=== PATIENT | male | born 1995 | race African-American/Black ===

== ENCOUNTER 2018-05-30 10:16 | Inpatient (IN) | payer MEDICAID, OTHER ==
[~2018-05-30] VITALS: Ht 188 cm; Wt 125.6 kg
[2018-05-30] MEDS ORDERED: CYCL10 PO (10:38)
[2018-05-30 10:52] LABS: BASOPHILS % (AUTO) 0.9 % (0.0-2.0); EOSINOPHILS % (AUTO) 3.4 % (1.0-6.0); HEMATOCRIT 43.6 % (41-53); LYMPHOCYTES # (AUTO) 1.3 K/uL (1.0-4.8); LYMPHOCYTES % (AUTO) 29.6 % (22.0-44.0); MEAN CORPUSCULAR HGB CONC 34.4 G/dL (31.0-37.0); MEAN CORPUSCULAR VOLUME 84 fL (80-100); MONOCYTES # (AUTO) 0.4 K/uL (0.1-1.0); MONOCYTES % (AUTO) 8.9 % (2.0-9.0); NEUTROPHILS # (AUTO) 2.6 K/uL (1.8-7.7); NEUTROPHILS % (AUTO) 57.2 % (40.0-70.0); PLATELET COUNT (AUTO) 248 K/uL (150-450); RED BLOOD CELL COUNT(AUTO) 5.17 MIL/uL (4.50-5.90); RED CELL DISTRIBUTION WIDTH 13.5 % (11.5-14.5)
[2018-05-30 10:59] LABS: ANION GAP 6 mmol/L (8-16); CALCIUM, TOTAL 9.4 mg/dL (8.8-10.5); CARBON DIOXIDE 31 mmol/L (22-29); CHLORIDE 102 mmol/L (98-107); CREATININE 0.94 mg/dL (0.60-1.30); GLOMERULAR FILTR. RATE CALC > 60 mL/min (>60); GLUCOSE,RANDOM 100 mg/dL (70-110); SODIUM SERUM 139 mmol/L (136-145); UREA NITROGEN, BLOOD 10 mg/dL (7-18)
[2018-05-30 11:00] LABS: AMPHET/METH SCREEN,URINE NEGATIVE (NEGATIVE); APPEARANCE,URINE CLEAR (CLEAR); BARBITURATE SCREEN, URINE NEGATIVE (NEGATIVE); BENZODIAZEPINES SCREEN,URINE NEGATIVE (NEGATIVE); BILIRUBIN,URINE NEGATIVE (NEGATIVE); CANNABINOID SCREEN,URINE NEGATIVE (NEGATIVE); COCAINE SCREEN,URINE NEGATIVE (NEGATIVE); GLUCOSE, URINE (UA) NEGATIVE (NEGATIVE); KETONES,URINE NEGATIVE (NEGATIVE); LEUKOCYTE ESTERASE ,URINE NEGATIVE (NEGATIVE); METHADONE SCREEN, URINE NEGATIVE (NEGATIVE); NITRATE,URINE NEGATIVE (NEGATIVE); OCCULT BLOOD,URINE NEGATIVE (NEGATIVE); OPIATE SCREEN,URINE NEGATIVE (NEGATIVE); PROTEIN,URINE POS 1+ (NEGATIVE)
[2018-05-30 11:03] LABS: PHENCYCLIDINE SCREEN,URINE NEGATIVE (NEGATIVE)
[2018-05-30 11:05] LABS: ALANINE AMINOTRANSFERASE 25 U/L (12-78); ALBUMIN 4.7 g/dL (3.4-5.0); ALKALINE PHOSPHATASE 95 U/L (46-116); ASPARTATE AMINOTRANSFERASE 15 U/L (15-37); BILIRUBIN,TOTAL 0.6 mg/dL (0.1-1.0); TOTAL PROTEIN, SERUM 8.2 g/dL (6.4-8.2)
[2018-05-30 11:09] LABS: BACTERIA,URINE Rare /HPF (None Seen); WBC,URINE 0-2 /HPF (0-5)
[2018-05-30 11:10] LABS: MUCUS,URINE Many LPF (None Seen); SQUAMOUS EPITHELIAL CELL,UR Rare /LPF (None Seen)
[2018-05-30] MEDS ORDERED: LORazepam 2 MG/ML VIAL IM ONE (15:15)
[2018-05-30] MEDS ORDERED: HALOPERIDOL LACTATE 5 MG/ML VIAL IM ONE (15:15)
[2018-05-30] MEDS ORDERED: DiphenhydrAMINE HCL 50 MG/ML VIAL IM ONE (15:15)
[2018-05-31 07:54] LABS: FREE T4 (FREE THYROXINE) 0.91 ng/dL (0.76-1.46); THYROID STIMULATING HORMONE 1.74 uIU/mL (0.36-3.74)
[2018-05-31] MEDS: LORazepam 2 MG TABLET PO PRN ×2 (08:26→16:44)
[2018-05-31] MEDS: HALOPERIDOL 5 MG TABLET PO PRN ×2 (11:14→16:44)
[2018-05-31 11:28] VITALS: BP 112/62
[2018-05-31] MEDS ORDERED: PETROLATUM,WHITE 71 GM JELLY TP PRN (12:15)
[2018-05-31] MEDS ORDERED: LOPERAMIDE HCL 2 MG CAPSULE PO PRN (12:15)
[2018-05-31] MEDS ORDERED: ONDANSETRON HCL 4 MG TABLET PO PRN (12:15)
[2018-05-31] MEDS ORDERED: MAG HYDROX/AL HYDROX/SIMETH ES 30 ML SUSPENSION UDCUP PO PRN (12:15)
[2018-05-31] MEDS ORDERED: CloNIDine HCL 0.1 MG TABLET PO PRN (12:15)
[2018-05-31] MEDS ORDERED: ALBUTEROL SULFATE HFA 90 MCG/PUFF 8 GM INHALER IH PRN (12:15)
[2018-05-31] MEDS ORDERED: BACITRACIN 28.4 GM OINTMENT TP PRN (12:15)
[2018-05-31] MEDS ORDERED: ACETAMINOPHEN 325 MG TABLET PO PRN (12:15)
[2018-05-31] MEDS ORDERED: BENZOCAINE/MENTHOL LOZENGE MM PRN (12:15)
[2018-05-31] MEDS ORDERED: IBUPROFEN 600 MG TABLET PO PRN (12:15)
[2018-05-31] MEDS ORDERED: MAGNESIUM HYDROXIDE SUSPENSION 30 ML UDCUP PO PRN (12:15)
[2018-05-31 16:43] VITALS: BP 123/64
[2018-05-31] MEDS: ZOLPIDEM TARTRATE 10 MG TABLET PO PRN (21:56)
[2018-06-01 06:32] VITALS: BP 113/65
[2018-06-01 08:11] VITALS: BP 114/66
[2018-06-01] MEDS: NICOTINE 21 MG/24 HOUR PATCH TD SCH (09:53)
[2018-06-01] MEDS: DOCUSATE SODIUM 100 MG CAPSULE PO SCH (09:53)
[2018-06-01] MEDS: OMEPRAZOLE 20 MG CAPSULE PO SCH (09:53)
[2018-06-01] MEDS: HALOPERIDOL 5 MG TABLET PO PRN (10:47)
[2018-06-01] MEDS: LORazepam 2 MG TABLET PO PRN (10:47)
[2018-06-01 16:08] VITALS: BP 129/73
[2018-06-01] MEDS: OLANZapine 5 MG TABLET PO SCH (20:27)
[2018-06-02 06:23] VITALS: BP 125/67
[2018-06-02 08:31] VITALS: BP 108/64
[2018-06-02] MEDS: CITALOPRAM HYDROBROMIDE 20 MG TABLET PO SCH (08:41)
[2018-06-02] MEDS: NICOTINE 21 MG/24 HOUR PATCH TD SCH (08:41)
[2018-06-02] MEDS: OMEPRAZOLE 20 MG CAPSULE PO SCH (08:41)
[2018-06-02] MEDS: LORazepam 2 MG TABLET PO PRN (08:41)
[2018-06-02] MEDS: DOCUSATE SODIUM 100 MG CAPSULE PO SCH (08:41)
[2018-06-02 16:00] VITALS: BP 114/66
[2018-06-02] MEDS: OLANZapine 5 MG TABLET PO SCH (20:36)
[2018-06-03 06:58] VITALS: BP 110/72
[2018-06-03 08:19] VITALS: BP 109/68
[2018-06-03] MEDS: NICOTINE 21 MG/24 HOUR PATCH TD SCH (09:00)
[2018-06-03] MEDS: HALOPERIDOL 5 MG TABLET PO PRN ×2 (09:21→16:52)
[2018-06-03] MEDS: DOCUSATE SODIUM 100 MG CAPSULE PO SCH (09:21)
[2018-06-03] MEDS: OMEPRAZOLE 20 MG CAPSULE PO SCH (09:21)
[2018-06-03] MEDS: LORazepam 2 MG TABLET PO PRN ×2 (09:21→16:52)
[2018-06-03] MEDS: CITALOPRAM HYDROBROMIDE 20 MG TABLET PO SCH (09:21)
[2018-06-03 16:00] VITALS: BP 114/65
[2018-06-03] MEDS: OLANZapine 5 MG TABLET PO SCH (20:30)
[2018-06-04 06:49] VITALS: BP 106/57
[2018-06-04] MEDS: DOCUSATE SODIUM 100 MG CAPSULE PO SCH (08:13)
[2018-06-04] MEDS: CITALOPRAM HYDROBROMIDE 20 MG TABLET PO SCH (08:13)
[2018-06-04] MEDS: LORazepam 2 MG TABLET PO PRN ×2 (08:13→17:01)
[2018-06-04] MEDS: OMEPRAZOLE 20 MG CAPSULE PO SCH (08:13)
[2018-06-04] MEDS: NICOTINE 21 MG/24 HOUR PATCH TD SCH (08:13)
[2018-06-04 10:58] VITALS: BP 107/60
[2018-06-04 16:00] VITALS: BP 112/88
[2018-06-04] MEDS: HALOPERIDOL 5 MG TABLET PO PRN (17:01)
[2018-06-04] MEDS: OLANZapine 5 MG TABLET PO SCH (21:22)
[2018-06-04] MEDS: ZOLPIDEM TARTRATE 10 MG TABLET PO PRN (21:22)
[2018-06-05 02:19] VITALS: BP 116/83
[2018-06-05] MEDS: NICOTINE 21 MG/24 HOUR PATCH TD SCH (09:00)
[2018-06-05 09:13] VITALS: BP 114/62
[2018-06-05] MEDS: DOCUSATE SODIUM 100 MG CAPSULE PO SCH (09:32)
[2018-06-05] MEDS: CITALOPRAM HYDROBROMIDE 20 MG TABLET PO SCH (09:32)
[2018-06-05] MEDS: OMEPRAZOLE 20 MG CAPSULE PO SCH (09:32)
[2018-06-05 16:00] VITALS: BP 110/80
[2018-06-05] MEDS ORDERED: OLAN5TAB2 PO (16:18)
[2018-06-05] MEDS ORDERED: CITA-106 PO (16:19)
== END 2018-06-05 17:55 | disposition home or self-care (01) | DRG 750 ==
LOC: EMS 10:18 → B3A 05-31 08:41
PROVIDERS: ADMIT Psychiatry & Neurology Psychiatry; ATTEND Psychiatry & Neurology Psychiatry
DX: F25.9 Schizoaffective disorder, unspecified (principal); R45.851 Suicidal ideations; F32.9 Major depressive disorder, single episode, unspecified; F41.9 Anxiety disorder, unspecified; F17.210 Nicotine dependence, cigarettes, uncomplicated; G89.29 Other chronic pain; G47.00 Insomnia, unspecified; F15.90 Other stimulant use, unspecified, uncomplicated; F12.90 Cannabis use, unspecified, uncomplicated; M54.5 Low back pain; Z71.51 Drug abuse counseling and surveillance of drug abuser; Z91.030 Bee allergy status; Z91.048 Other nonmedicinal substance allergy status; Z56.0 Unemployment, unspecified
CPT/HCPCS: 84439; 84443; 96372; 99285; G0480; J1200; J1630; J2060; J3535; Q0162